=== PATIENT | male | born 1990 | race American Indian/Alaskan Native ===

== ENCOUNTER 2022-04-29 08:01 | Emergency (ER) | payer SELFPAY ==
[2022-04-29 10:32] LABS: Bilirubin,Urine Negative (Negative); Blood,Urine Negative (Negative); Color,Urine Yellow (Yellow); Protein,Urine <15 mg/dL mg/dL (Negative); Urobilinogen,Urine < 2.0 mg/dL (<2.0); WBC,Urine < 1.0 /HPF (0.0-6.0)
[2022-04-29 10:56] LABS: Alanine Aminotransferase 11 units/L (7-56); Blood Urea Nitrogen 7 mg/dL (9-20); Calcium 10.1 mg/dL (8.4-10.2); Hematocrit 43.1 % (35.5-45.6); Hemoglobin 14.1 gm/dl (11.8-15.2); Hemolysis Index 7; Mean Corpuscular HGB Conc 33 % (32-34); Mean Corpuscular Volume 93 fl (84-94); Red Blood Count 4.64 M/mm3 (3.65-5.03); Red Cell Distribution Width 14.4 % (13.2-15.2)
[2022-04-29 10:57] LABS: Basophils % (Auto) 0.3 % (0.0-1.8); Eosinophils # (Auto) 0.2 K/mm3 (0.0-0.4); Eosinophils % (Auto) 3.5 % (0.0-4.3); Lymphocytes # (Auto) 0.9 K/mm3 (1.2-5.4); Lymphocytes % (Auto) 16.9 % (13.4-35.0); Monocytes # (Auto) 0.3 K/mm3 (0.0-0.8); Monocytes % (Auto) 5.4 % (0.0-7.3); Platelet Count 305 K/mm3 (140-440)
[2022-04-29] MEDS ORDERED: FAMOTIDINE 20 MG TAB PO ONE (11:06)
[2022-04-29] MEDS ORDERED: ONDANSETRON 4 MG ODT TAB PO ONE (11:06)
[2022-04-29] MEDS ORDERED: DICYCLOMINE 20 MG TAB PO ONE (11:06)
[2022-04-29 11:24] LABS: BUN/Creatinine Ratio 10
--- NOTE | 2022-04-29 12:09 | Emergency Department Report ---
ED Abdominal Pain HPI - General Chief Complaint: Abdominal Pain Stated Complaint: VOMITING/ABDOMINAL PAIN Source: family Mode of arrival: Ambulatory Limitations: No Limitations - History of Present Illness Initial Comments: Patient is a 32-year-old -[place] male with a history of chronic alcohol abuse and chronic osteoarthritis who presents to the ED with complaint of acute onset persistent epigastric pain intermittently for the last 5 days with nausea and vomiting. Patient states that the pain is mainly in the epigastric area with burning sensation and only gets relieved with each episode of emesis but worsens with food. Patient denies dysuria, urinary frequency and urgency, hematemesis, hematochezia, diarrhea, chest pain or shortness of breath, fever, chills, traumatic injury, change in vision, sore throat, headache, dizziness, syncope, testicular pain, hematuria or constipation. MD Complaint: abdominal pain, other (Nausea and vomiting) -: days(s) (5) Location: epigastric Radiation: none Migration to: no migration Severity: moderate Severity scale (0 -10): 4 Quality: aching, burning Consistency: intermittent Improves With: vomiting Worsens With: eating Context: other (Chronic alcohol abuse) Associated Symptoms: nausea, vomiting. denies: diarrhea, fever, chills, constipation, dysuria, hematemesis, hematochezia, melena, anorexia, syncope - Related Data Home Medications Medication Instructions Recorded Confirmed Last Taken Ferrous Sulfate 325 mg PO TID 04/29/22 04/29/22 Unknown Previous Rx's Medication Instructions Recorded Last Taken Type Dicyclomine [Bentyl] 20 mg PO Q6H PRN #30 tablet 04/29/22 Unknown Rx Famotidine [Pepcid] 20 mg PO BID #60 tablet 04/29/22 Unknown Rx Omeprazole 40 mg PO DAILY #60 cap 04/29/22 Unknown Rx Ondansetron [Zofran Odt] 4 mg PO Q8HR PRN #20 tab.rapdis 04/29/22 Unknown Rx Allergies Allergy/AdvReac Type Severity Reaction Status Date / Time No Known Allergies Allergy Verified 04/29/22 11:23 ED Review of Systems ROS: Stated complaint: VOMITING/ABDOMINAL PAIN Other details as noted in HPI Constitutional: denies: chills, fever Eyes: denies: eye pain, eye discharge, vision change ENT: denies: ear pain, throat pain Respiratory: denies: cough, shortness of breath, wheezing Cardiovascular: denies: chest pain, palpitations Endocrine: no symptoms reported Gastrointestinal: abdominal pain (Epigastric pain), nausea, vomiting. denies: diarrhea, constipation, hematemesis, hematochezia Genitourinary: denies: urgency, dysuria Musculoskeletal: denies: back pain, joint swelling, arthralgia Skin: denies: rash, lesions Neurological: denies: headache, weakness, paresthesias Psychiatric: denies: anxiety, depression Hematological/Lymphatic: denies: easy bleeding, easy bruising ED Past Medical Hx - Past Medical History Hx Arthritis: Yes - Surgical History Past Surgical History?: No - Social History Smoking Status: Never Smoker - Medications Home Medications: Home Medications Medication Instructions Recorded Confirmed Last Taken Type Dicyclomine [Bentyl] 20 mg PO Q6H PRN #30 tablet 04/29/22 Unknown Rx Famotidine [Pepcid] 20 mg PO BID #60 tablet 04/29/22 Unknown Rx Ferrous Sulfate 325 mg PO TID 04/29/22 04/29/22 Unknown History Omeprazole 40 mg PO DAILY #60 cap 04/29/22 Unknown Rx Ondansetron [Zofran Odt] 4 mg PO Q8HR PRN #20 tab.rapdis 04/29/22 Unknown Rx ED Physical Exam - General Limitations: No Limitations General appearance: alert, in no apparent distress - Head Head exam: Present: atraumatic, normocephalic, normal inspection - Eye Eye exam: Present: normal appearance, PERRL, EOMI Pupils: Present: normal accommodation - ENT ENT exam: Present: normal exam, normal orophraynx, mucous membranes moist, TM's normal bilaterally, normal external ear exam - Neck Neck exam: Present: normal inspection, full ROM. Absent: tenderness - Respiratory Respiratory exam: Present: normal lung sounds bilaterally. Absent: respiratory distress, wheezes, rales, rhonchi, chest wall tenderness, accessory muscle use, decreased breath sounds, prolonged expiratory - Cardiovascular Cardiovascular Exam: Present: regular rate, normal rhythm, normal heart sounds. Absent: systolic murmur, diastolic murmur, rubs, gallop - GI/Abdominal GI/Abdominal exam: Present: soft, normal bowel sounds. Absent: tenderness, guarding, rebound, hyperactive bowel sounds, hypoactive bowel sounds, organomegaly, mass - Extremities Exam Extremities exam: Present: normal inspection, full ROM, normal capillary refill. Absent: tenderness, pedal edema, joint swelling, calf tenderness - Back Exam Back exam: Present: normal inspection, full ROM. Absent: tenderness, CVA tenderness (L), muscle spasm, paraspinal tenderness, vertebral tenderness - Neurological Exam Neurological exam: Present: alert, oriented X3, CN II-XII intact, normal gait, reflexes normal - Psychiatric Psychiatric exam: Present: normal affect, normal mood - Skin Skin exam: Present: warm, dry, intact, normal color. Absent: rash ED Course Vital Signs 04/29/22 08:42 Temperature 97.9 F Pulse Rate 74 Respiratory 16 Rate Blood Pressure 118/69 O2 Sat by Pulse 98 Oximetry ED Medical Decision Making - Lab Data Result diagrams: 04/29/22 09:21 04/29/22 09:21 - Medical Decision Making This is a 32-year-old -[place] male with a history of chronic alcohol abuse and chronic osteoarthritis who presents to the ED with complaint of acute onset persistent epigastric pain intermittently for the last 5 days with nausea and vomiting. Patient states that the pain is mainly in the epigastric area with burning sensation and only gets relieved with each episode of emesis but worsens with food. In the ED, patient is alert and oriented x3 and is not in any distress. Patient was treated for pain, also given antacids and antiemetics in the ED. Lab test results were reviewed and are all nonactionable. Based on the history and physical exam findings as well as normal lab test results, patient symptoms are likely due to chronic alcohol abuse and complications of GERD. Patient was therefore discharged home on medications and advised to follow-up with his primary care physician in 7 to 10 days for reevaluation. Patient was also advised to minimize alcohol abuse tendencies to improve on his symptoms. - Differential Diagnosis GERD; gastritis; gastroenteritis; dehydration; Critical care attestation.: If time is entered above; I have spent that time in minutes in the direct care of this critically ill patient, excluding procedure time. ED Disposition Clinical Impression: Intermittent epigastric abdominal pain, Nausea and vomiting in adult patient, Alcohol abuse, continuous GERD (gastroesophageal reflux disease) Qualifiers: Esophagitis presence: esophagitis presence not specified Qualified Code(s): K 21.9 - Gastro-esophageal reflux disease without esophagitis Disposition: HOME / SELF CARE / HOMELESS Is pt being admited?: No Does the pt Need Aspirin: No Condition: Stable Instructions: Heartburn, [id number], Abdominal Pain, Adult, [id number], Nausea and Vomiting, Adult, [id number], Food Choices for Gastroesophageal Reflux Disease, Adult, [id number], Gastroesophageal Reflux Disease, Adult, [id number] Additional Instructions: All lab test results were reviewed and are all nonactionable. Your symptoms are likely due to acid reflux complicated by daily alcohol abuse. Therefore take medication as advised, consider minimizing alcohol consumption or alcohol rehab programs available within the community. Follow-up with your primary care physician in 7 to 10 days for reevaluation or return to the ED immediately if symptoms get worse. Prescriptions: Dicyclomine [Bentyl] 20 mg PO Q6H PRN #30 tablet PRN Reason: Abdominal pain Omeprazole 40 mg PO DAILY #60 cap Famotidine [Pepcid] 20 mg PO BID #60 tablet Ondansetron [Zofran Odt] 4 mg PO Q8HR PRN #20 tab.rapdis PRN Reason: Nausea Referrals: [facility] [Provider Group] - 7-10 days Time of Disposition: 12:16 Print Language: [id number]
[2022-04-29 12:45] VITALS: BP 110/65
== END 2022-04-29 14:00 | disposition home or self-care (01) ==
LOC: ED 08:01
DX: K21.9 Gastro-esophageal reflux disease without esophagitis (principal); F10.10 Alcohol abuse, uncomplicated; M19.90 Unspecified osteoarthritis, unspecified site; Z79.899 Other long term (current) drug therapy; Y90.9 Presence of alcohol in blood, level not specified
CPT/HCPCS: 36415; 80053; 81001; 83690; 85025; 99283; J3490; Q0162

== ENCOUNTER 2022-07-25 23:58 | Emergency (ER) | payer SELFPAY ==
[2022-07-26 00:34] VITALS: BP 100/63
== END 2022-07-26 02:00 | disposition left against medical advice (07) ==
LOC: ED 23:58
DX: R10.9 Unspecified abdominal pain (principal); Z53.21 Procedure and treatment not carried out due to patient leaving prior to being seen by health care provider